=== PATIENT | male | born 1950 | race Two or more races ===

== ENCOUNTER 2020-04-09 17:56 | Outpatient (REF) | payer MEDICARE, MEDICAID, SELFPAY | END 2020-04-09 17:57 | disposition home or self-care (01) | LOC: HO.LAB 17:56 | PROVIDERS: Visit Provider Internal Medicine | DX: Z20.828 Contact with and (suspected) exposure to other viral communicable diseases (principal) | CPT/HCPCS: C9803; U0003 ==

== ENCOUNTER 2021-04-24 11:35 | Outpatient (REF) | payer MEDICARE, MEDICAID, SELFPAY ==
[2021-04-24 13:39] LABS: Influenza A PCR NEGATIVE (Negative); Influenza B PCR NEGATIVE (Negative); Resp Syncy Virus RNA Qual PCR NEGATIVE (Negative); SARS COV2 PCR INHOUSE NEGATIVE (Negative)
[2021-04-24 14:13] LABS: Adenovirus PCR Not Detected (Not Detect.); Bordetella parapertussis PCR Not Detected (Not Detect.); Bordetella pertussis PCR Not Detected (Not Detect.); Chlamydia pneumoniae PCR Not Detected (Not Detect.); Coronavirus 229E PCR Not Detected (Not Detect.); Coronavirus HKU1 PCR Not Detected (Not Detect.); Coronavirus NL63 PCR Not Detected (Not Detect.); Coronavirus OC43 PCR Not Detected (Not Detect.); Influenza A PCR Not Detected (Not Detect.); Influenza B PCR Not Detected (Not Detect.); Mycoplasma pneumoniae PCR Not Detected (Not Detect.); Parainfluenza 1 PCR Not Detected (Not Detect.); Parainfluenza 2 PCR Not Detected (Not Detect.); Parainfluenza 3 PCR Not Detected (Not Detect.); Parainfluenza 4 PCR Not Detected (Not Detect.); RSV PCR Not Detected (Not Detect.); Rhino/Enterovirus PCR Not Detected (Not Detect.); SARS-CoV-2 PCR Not Detected (Not Detect.)
[2021-04-24 15:05] LABS: Human metapneumovirus PCR Detected (Not Detect.)
== END 2021-04-24 11:36 | disposition home or self-care (01) ==
LOC: HO.LAB 11:35
PROVIDERS: Visit Provider Physician Assistant Medical
DX: Z20.822 Contact with and (suspected) exposure to COVID-19 (principal)
CPT/HCPCS: 0241U; 36415; 87633

== ENCOUNTER 2022-01-14 15:59 | Outpatient (REF) | payer MEDICARE, MEDICAID, SELFPAY ==
[2022-01-14 16:27] LABS: COVID-19 Test Negative (Negative); IDNOW Serial# 16C4AD1C
== END 2022-01-14 16:00 | disposition home or self-care (01) ==
LOC: HO.LAB 15:59
PROVIDERS: Visit Provider Internal Medicine
DX: Z20.822 Contact with and (suspected) exposure to COVID-19 (principal)
CPT/HCPCS: 87635; C9803

== ENCOUNTER 2024-06-10 10:02 | Outpatient (REF) | payer MEDICARE, MEDICAID, SELFPAY ==
[2024-06-10 10:15] VITALS: BP 167/64; PULSE 69; RESP 18; TEMP 36.4; O2SAT 97; BMI 38.7
--- OUTSIDE RECORDS SUMMARY | 2024-06-10 10:42 | XMS_ITS | Encounter Summary ---
Author Organization [facility] Address [address] [place] [address] Phone Care Team Providers Care Customer Logistics Manager Name Role Phone Chuy Hutson MD Primary Care Provider [phone] Encounter Details Date Type Department Care Team ([facility] Contact Info) Description 08/09/2022 Documentation Only [facility] [address] [place] [address] Tito Scales MD [address] [place] [address] [place] [address] Social History Tobacco Use Types Packs/Day Years Used Date Smoking Tobacco: Former Cigarettes Smokeless Tobacco: Never Sex and Gender Information Value Date Recorded Sex Assigned at Not on file Legal Sex Male 3:31 PM EDT Gender Identity Not on file Sexual Orientation Not on file documented as of this encounter Plan of Treatment Upcoming Encounters Date Type Department Care Team ([facility] Contact Info) Description 06/11/2024 2:50 PM EST Office Visit [facility] [address] [place] [address] Tito Scales MD [address] [place] [address] [place] [address] documented as of this encounter Visit Diagnoses Not on filedocumented in this encounter Care Teams Customer Logistics Manager Relationship Specialty Start Date End Date Chuy Hutson MD [address] [place] [address] [place] PCP - General Internal Medicine 11/24/23 documented as of this encounter
--- OUTSIDE RECORDS SUMMARY | 2024-06-10 10:42 | XMS_ITS | Encounter Summary ---
Author Organization [facility] Address [address] [place] [address] Phone Care Team Providers Care Gastroenterologist Name Role Phone Chuy Hutson MD Primary Care Provider [phone] Encounter Details Date Type Department Care Team ([facility] Contact Info) Description 10/05/2021 Documentation Only [facility] [address] [place] [address] Tito Scales MD [address] [place] [address] [place] [address] Social History Tobacco Use Types Packs/Day Years Used Date Smoking Tobacco: Former Cigarettes Smokeless Tobacco: Never Sex and Gender Information Value Date Recorded Sex Assigned at Not on file Legal Sex Male 3:31 PM EDT Gender Identity Not on file Sexual Orientation Not on file documented as of this encounter Plan of Treatment Upcoming Encounters Date Type Department Care Team ([facility] Contact Info) Description 06/11/2024 2:50 PM EST Office Visit [facility] [address] [place] [address] Tito Scales MD [address] [place] [address] [place] [address] documented as of this encounter Visit Diagnoses Not on filedocumented in this encounter Care Teams Gastroenterologist Relationship Specialty Start Date End Date Chuy Hutson MD [address] [place] [address] [place] PCP - General Internal Medicine 11/24/23 documented as of this encounter
--- OUTSIDE RECORDS SUMMARY | 2024-06-10 10:42 | XMS_ITS | Encounter Summary ---
Author Organization [facility] Address [address] [place] [address] Phone Care Team Providers Care Inventory Representative Name Role Phone Chuy Hutson MD Primary Care Provider [phone] Encounter Details Date Type Department Care Team ([facility] Contact Info) Description 12/28/2021 Documentation Only [facility] [address] [place] [address] Tito Scales MD [address] [place] [address] [place] [address] Social History Tobacco Use Types Packs/Day Years Used Date Smoking Tobacco: Former Cigarettes Smokeless Tobacco: Never Sex and Gender Information Value Date Recorded Sex Assigned at Not on file Legal Sex Male 3:31 PM EDT Gender Identity Not on file Sexual Orientation Not on file documented as of this encounter Plan of Treatment Upcoming Encounters Date Type Department Care Team ([facility] Contact Info) Description 06/11/2024 2:50 PM EST Office Visit [facility] [address] [place] [address] Tito Scales MD [address] [place] [address] [place] [address] documented as of this encounter Visit Diagnoses Not on filedocumented in this encounter Care Teams Inventory Representative Relationship Specialty Start Date End Date Cuhy Hutson MD [address] [place] [address] [place] PCP - General Internal Medicine 11/24/23 documented as of this encounter
--- OUTSIDE RECORDS SUMMARY | 2024-06-10 10:42 | XMS_ITS | Encounter Summary ---
Author Organization [facility] Address [address] [place] [address] Phone Care Team Providers Care Machine Tank Operator Name Role Phone Chuy Hutson MD Primary Care Provider [phone] Encounter Details Date Type Department Care Team ([facility] Contact Info) Description 10/05/2021 Documentation Only [facility] [address] [place] [address] Tito Scales MD [address] [place] [address] [place] [address] Social History Tobacco Use Types Packs/Day Years Used Date Smoking Tobacco: Former Cigarettes Smokeless Tobacco: Never Sex and Gender Information Value Date Recorded Sex Assigned at Not on file Legal Sex Male 3:31 PM EDT Gender Identity Not on file Sexual Orientation Not on file documented as of this encounter Plan of Treatment Upcoming Encounters Date Type Department Care Team ([facility] Contact Info) Description 06/11/2024 2:50 PM EST Office Visit [facility] [address] [place] [address] Tito Scales MD [address] [place] [address] [place] [address] documented as of this encounter Visit Diagnoses Not on filedocumented in this encounter Care Teams Machine Tank Operator Relationship Specialty Start Date End Date Chuy Hutson MD [address] [place] [address] [place] PCP - General Internal Medicine 11/24/23 documented as of this encounter
--- OUTSIDE RECORDS SUMMARY | 2024-06-10 10:42 | XMS_ITS | Encounter Summary ---
Author Organization [facility] Address [address] [place] [address] Phone Care Team Providers Care Director Of Direct Marketing Name Role Phone Chuy Hutson MD Primary Care Provider [phone] Encounter Details Date Type Department Care Team ([facility] Contact Info) Description 12/28/2021 Documentation Only [facility] [address] [place] [address] Tito Scales MD [address] [place] [address] [place] [address] Social History Tobacco Use Types Packs/Day Years Used Date Smoking Tobacco: Former Cigarettes Smokeless Tobacco: Never Sex and Gender Information Value Date Recorded Sex Assigned at Not on file Legal Sex Male 3:31 PM EDT Gender Identity Not on file Sexual Orientation Not on file documented as of this encounter Plan of Treatment Upcoming Encounters Date Type Department Care Team ([facility] Contact Info) Description 06/11/2024 2:50 PM EST Office Visit [facility] [address] [place] [address] Tito Scales MD [address] [place] [address] [place] [address] documented as of this encounter Visit Diagnoses Not on filedocumented in this encounter Care Teams Director Of Direct Marketing Relationship Specialty Start Date End Date Chuy Hutson MD [address] [place] [address] [place] PCP - General Internal Medicine 11/24/23 documented as of this encounter
--- OUTSIDE RECORDS SUMMARY | 2024-06-10 10:42 | XMS_ITS | Encounter Summary ---
Author Organization [facility] Address [address] [place] [address] Phone Care Team Providers Care Heating And Ventilating Drafter Name Role Phone Chuy Hutson MD Primary Care Provider [phone] Encounter Details Date Type Department Care Team ([facility] Contact Info) Description 08/09/2022 Documentation Only [facility] [address] [place] [address] Tito Scales MD [address] [place] [address] [place] [address] Social History Tobacco Use Types Packs/Day Years Used Date Smoking Tobacco: Former Cigarettes Smokeless Tobacco: Never Sex and Gender Information Value Date Recorded Sex Assigned at Not on file Legal Sex Male 3:31 PM EDT Gender Identity Not on file Sexual Orientation Not on file documented as of this encounter Plan of Treatment Upcoming Encounters Date Type Department Care Team ([facility] Contact Info) Description 06/11/2024 2:50 PM EST Office Visit [facility] [address] [place] [address] Tito Scales MD [address] [place] [address] [place] [address] documented as of this encounter Visit Diagnoses Not on filedocumented in this encounter Care Teams Heating And Ventilating Drafter Relationship Specialty Start Date End Date Chuy Hutson MD [address] [place] [address] [place] PCP - General Internal Medicine 11/24/23 documented as of this encounter
--- OUTSIDE RECORDS SUMMARY | 2024-06-10 10:42 | XMS_ITS | Encounter Summary ---
Author Organization [facility] Address [address] [place] [address] Phone Care Team Providers Care Central Office Worker Name Role Phone Chuy Hutson MD Primary Care Provider [phone] Encounter Details Date Type Department Care Team ([facility] Contact Info) Description 10/05/2021 Documentation Only [facility] [address] [place] [address] Tito Scales MD [address] [place] [address] [place] [address] Social History Tobacco Use Types Packs/Day Years Used Date Smoking Tobacco: Former Cigarettes Smokeless Tobacco: Never Sex and Gender Information Value Date Recorded Sex Assigned at Not on file Legal Sex Male 3:31 PM EDT Gender Identity Not on file Sexual Orientation Not on file documented as of this encounter Plan of Treatment Upcoming Encounters Date Type Department Care Team ([facility] Contact Info) Description 06/11/2024 2:50 PM EST Office Visit [facility] [address] [place] [address] Tito Scales MD [address] [place] [address] [place] [address] documented as of this encounter Visit Diagnoses Not on filedocumented in this encounter Care Teams Central Office Worker Relationship Specialty Start Date End Date Chuy Hutson MD [address] [place] [address] [place] PCP - General Internal Medicine 11/24/23 documented as of this encounter
--- OUTSIDE RECORDS SUMMARY | 2024-06-10 10:42 | XMS_ITS | Encounter Summary ---
Author Organization [facility] Address [address] [place] [address] Phone Care Team Providers Care Second Miller Name Role Phone Chuy Hutson MD Primary Care Provider [phone] Encounter Details Date Type Department Care Team ([facility] Contact Info) Description 05/30/2022 Documentation Only [facility] [address] [place] [address] Tito Scales MD [address] [place] [address] [place] [address] Social History Tobacco Use Types Packs/Day Years Used Date Smoking Tobacco: Former Cigarettes Smokeless Tobacco: Never Sex and Gender Information Value Date Recorded Sex Assigned at Not on file Legal Sex Male 3:31 PM EDT Gender Identity Not on file Sexual Orientation Not on file documented as of this encounter Plan of Treatment Upcoming Encounters Date Type Department Care Team ([facility] Contact Info) Description 06/11/2024 2:50 PM EST Office Visit [facility] [address] [place] [address] Tito Scales MD [address] [place] [address] [place] [address] documented as of this encounter Visit Diagnoses Not on filedocumented in this encounter Care Teams Second Miller Relationship Specialty Start Date End Date Chuy Hutson MD [address] [place] [address] [place] PCP - General Internal Medicine 11/24/23 documented as of this encounter
--- OUTSIDE RECORDS SUMMARY | 2024-06-10 10:42 | XMS_ITS | Encounter Summary ---
Author Organization [facility] Address [address] [place] [address] Phone Care Team Providers Care Silverware Washer Name Role Phone Chuy Hutson MD Primary Care Provider [phone] Encounter Details Date Type Department Care Team ([facility] Contact Info) Description 12/14/2023 Documentation Only [facility] [address] [place] [address] Tito Scales MD [address] [place] [address] [place] [address] Social History Tobacco Use Types Packs/Day Years Used Date Smoking Tobacco: Former Cigarettes Smokeless Tobacco: Never Sex and Gender Information Value Date Recorded Sex Assigned at Not on file Legal Sex Male 3:31 PM EDT Gender Identity Not on file Sexual Orientation Not on file documented as of this encounter Plan of Treatment Upcoming Encounters Date Type Department Care Team ([facility] Contact Info) Description 06/11/2024 2:50 PM EST Office Visit [facility] [address] [place] [address] Tito Scales MD [address] [place] [address] [place] [address] documented as of this encounter Visit Diagnoses Not on filedocumented in this encounter Care Teams Silverware Washer Relationship Specialty Start Date End Date Chuy Hutson MD [address] [place] [address] [place] PCP - General Internal Medicine 11/24/23 documented as of this encounter
--- OUTSIDE RECORDS SUMMARY | 2024-06-10 10:42 | XMS_ITS | Encounter Summary ---
Author Organization [facility] Address [address] [place] [address] Phone Care Team Providers Care Valet Attendant Name Role Phone Chuy Hutson MD Primary Care Provider [phone] Encounter Details Date Type Department Care Team ([facility] Contact Info) Description 10/05/2021 Documentation Only [facility] [address] [place] [address] Tito Scales MD [address] [place] [address] [place] [address] Social History Tobacco Use Types Packs/Day Years Used Date Smoking Tobacco: Former Cigarettes Smokeless Tobacco: Never Sex and Gender Information Value Date Recorded Sex Assigned at Not on file Legal Sex Male 3:31 PM EDT Gender Identity Not on file Sexual Orientation Not on file documented as of this encounter Plan of Treatment Upcoming Encounters Date Type Department Care Team ([facility] Contact Info) Description 06/11/2024 2:50 PM EST Office Visit [facility] [address] [place] [address] Tito Scales MD [address] [place] [address] [place] [address] documented as of this encounter Visit Diagnoses Not on filedocumented in this encounter Care Teams Valet Attendant Relationship Specialty Start Date End Date Chuy Hutson MD [address] [place] [address] [place] PCP - General Internal Medicine 11/24/23 documented as of this encounter
--- OUTSIDE RECORDS SUMMARY | 2024-06-10 10:42 | XMS_ITS | Encounter Summary ---
Author Organization [facility] Address [address] [place] [address] Phone Care Team Providers Care Survey Coordinator Name Role Phone Chuy Hutson MD Primary Care Provider [phone] Encounter Details Date Type Department Care Team ([facility] Contact Info) Description 12/28/2021 Documentation Only [facility] [address] [place] [address] Tito Scales MD [address] [place] [address] [place] [address] Social History Tobacco Use Types Packs/Day Years Used Date Smoking Tobacco: Former Cigarettes Smokeless Tobacco: Never Sex and Gender Information Value Date Recorded Sex Assigned at Not on file Legal Sex Male 3:31 PM EDT Gender Identity Not on file Sexual Orientation Not on file documented as of this encounter Plan of Treatment Upcoming Encounters Date Type Department Care Team ([facility] Contact Info) Description 06/11/2024 2:50 PM EST Office Visit [facility] [address] [place] [address] Tito Scales MD [address] [place] [address] [place] [address] documented as of this encounter Visit Diagnoses Not on filedocumented in this encounter Care Teams Survey Coordinator Relationship Specialty Start Date End Date Chuy Hutson MD [address] [place] [address] [place] PCP - General Internal Medicine 11/24/23 documented as of this encounter
--- OUTSIDE RECORDS SUMMARY | 2024-06-10 10:42 | XMS_ITS | Encounter Summary ---
Author Organization [facility] Address [address] [place] [address] Phone Care Team Providers Care Product Management Manager Name Role Phone Chuy Hutson MD Primary Care Provider Encounter Details Date Type Department Care Team ([facility] Contact Info) Description 05/30/2022 Documentation Only [facility] [address] [place] [address] Tito Scales MD [address] [place] [address] [place] [address] Social History Tobacco Use Types Packs/Day Years Used Date Smoking Tobacco: Former Cigarettes Smokeless Tobacco: Never Sex and Gender Information Value Date Recorded Sex Assigned at Not on file Legal Sex Male 3:31 PM EDT Gender Identity Not on file Sexual Orientation Not on file documented as of this encounter Plan of Treatment Upcoming Encounters Date Type Department Care Team ([facility] Contact Info) Description 06/11/2024 2:50 PM EST Office Visit [facility] [address] [place] [address] Tito Scales MD [address] [place] [address] [place] [address] documented as of this encounter Visit Diagnoses Not on filedocumented in this encounter Care Teams Product Management Manager Relationship Specialty Start Date End Date Chuy Hutson MD [address] [place] [address] [place] PCP - General Internal Medicine 11/24/23 documented as of this encounter
--- OUTSIDE RECORDS SUMMARY | 2024-06-10 10:42 | XMS_ITS | Clinical Summary ---
Author Organization [facility], Address [address] [place] [address] [place] [address] Phone Care Team Providers Care Medical Administrator Name Role Phone Chuy Hutson MD Primary Care Provider [phone] Allergies Active Allergy Reactions Criticality Noted Date Comments Morphine Itching 09/12/2021 Penicillin G Hives 09/12/2021 Medications amLODIPine (NORVASC) 5 MG tablet Take 5 mg by mouth 1 (one) time each day 2 Active Trulicity 1.5 MG/0.5ML solution pen-injector 2 Active Heartburn Relief 10 MG tablet TAKE 1 TABLET BY MOUTH 2 TIMES A DAY,X30 DAYS 2 Active clopidogrel (PLAVIX) 75 MG tablet Take 75 mg by mouth 1 (one) time each day 2 Active carvedilol (COREG) 25 MG tablet 2 Active NovoLOG FLEXPEN 100 UNIT/ML injection 2 Active isosorbide mononitrate (IMDUR) 60 MG 24 hr tablet 2 Active mirtazapine (REMERON) 30 MG tablet Take 30 mg by mouth at bed time 2 Active rosuvastatin (CRESTOR) 20 MG tablet 2 Active sulfamethoxazol e-trimethoprim (BACTRIM,SEPTRA ) 400-80 MG per tablet Take 1 tablet by mouth in the morning and 1 tablet in the evening. 14 tablet 2 Active valsartan (DIOVAN) 320 MG tablet 2 Active tamsulosin (FLOMAX) 0.4 MG 24 hr capsule 2 Active Incruse Ellipta 62.5 MCG/INH aerosol powder 2 Active OxyCONTIN 15 MG 12 hr abuse-deterrent tablet 2 Active ondansetron (ZOFRAN) 4 MG tablet TAKE 1 TABLET BY MOUTH THREE TIMES DAILY NEEDED X14 DAYS 2 Active nitroglycerin (NITROSTAT) 0.[address] 0.4 mg under the tongue 0 Active latanoprost (XALATAN) 0.005 % ophthalmic solution Administer 1 drop into affected eye(s) 1 Active ipratropium-alb uterol (DUO-NEB) 0.5-2.5 mg/3 mL nebulizer solution Inhale 1 Active hydrALAZINE 25 MG tablet Take 50 mg by mouth in the morning and 50 mg at noon and 50 mg in the evening. 2 Active gabapentin (NEURONTIN) 600 MG tablet 2 Active fluticasone (FLONASE) 50 MCG/ACT nasal spray 2 Active FLUoxetine (PROzac) 40 MG capsule 2 Active cetirizine (ZyrTEC) 10 MG tablet Take 1 tablet by mouth 2 Active aspirin (ST TYESHA) 81 MG EC tablet Take 1 tablet by mouth 2 Active amLODIPine (NORVASC) 10 MG tablet Take 10 mg by mouth 1 (one) time each day 2 Active albuterol HFA (PROVENTIL HFA;VENTOLIN HFA) 108 (90 Base) MCG/ACT inhaler INHALE 2 PUFFS EVERY 4 HOURS NEEDED FOR WHEEZING 2 Active acetaminophen (TYLENOL) 325 MG tablet Take 650 mg by mouth 2 Active Comfort EZ Pen [place] 33G X 5 MM misc 2 Active Breo Ellipta 100-25 MCG/INH aerosol powder Inhale 1 puff 1 (one) time each day 2 Active furosemide (LASIX) 80 MG tablet Take 2 tablets (160 mg total) by mouth in the morning and 2 tablets (160 mg total) in the evening. 120 tablet 11 2 Active senna (SENOKOT) 8.6 MG tablet TAKE 1 BY MOUTH EVERY DAY AT BEDTIME - PARA IR AL LESLI TODOS LOS LEBLANC; EVITAR ESTRENIMIENTO 2 Active Magnesium 200 MG tablet 3 Active hydrocortisone (CORTEF) 5 MG tablet 3 Active Artificial Tears 0.2-0.2-1 % solution 3 Active Semaglutide,0.2 5 or 0.5MG/DOS, (Ozempic, 0.25 or 0.5 MG/DOSE,) 2 MG/3ML solution pen-injector Inject 0.25 mg under the skin per week 3 mL 3 4 Active potassium chloride (K-TAB) 20 MEQ CR tablet TAKE 1 TABLET (20 MEQ TOTAL) BY MOUTH 1 (ONE) TIME EACH DAY DO NOT CRUSH OR CHEW 30 tablet 4 Active Active Problems Problem Noted Date Diagnosed Date Stage 3b chronic kidney disease 09/13/2021 Hypertensive disorder 09/12/2021 Hyperlipidemia 09/12/2021 Tubular adenoma 09/12/2021 Sleep apnea 09/12/2021 Morbid obesity 09/12/2021 Peripheral venous insufficiency 09/12/2021 Gastro-esophageal reflux disease without esophag itis 09/12/2021 Diabetes mellitus 09/12/2021 Coronary arteriosclerosis 09/12/2021 Chronic abdominal pain 09/12/2021 Benign prostatic hyperplasia 09/12/2021 Encounters Date Type Department Care Team Description 05/06/2024 Office Communication [facility] [address] [place] [address] Tito Scales MD 03/18/2024 Refill [facility] [address] [place] [address] Tito Scales MD 03/18/2024 Refill [facility] [address] [place] [address] Melva Umana MA from Last 3 Months Immunizations Name Administration Dates Next Due Influenza Whole 03/16/2011,01/07/2009,04/23/2007 Pfizer SARS-COV-2 02/12/2021,08/13/2020,07/24/19 21,07/13/2020 Pneumococcal Conjugate 13-Valent 02/05/2015 Pneumococcal Polysaccharide 08/27/2015, 1,01/07/2009 Td, Unspecified 07/11/2008 Tdap 02/04/2016 Zoster 07/24/2014 Family History Medical History Relation Comments COPD Father Stroke Mother Relation Status Comments Father Mother Social History Tobacco Use Types Packs/Day Years Used Date Smoking Tobacco: Former Cigarettes Smokeless Tobacco: Never Sex and Gender Information Value Date Recorded Sex Assigned at Not on file Legal Sex Male 3:31 PM EDT Gender Identity Not on file Sexual Orientation Not on file Last Filed Vital Signs Vital Sign Reading Time Taken Comments Blood Pressure 128/65 01/13/2022 10:34 AM EDT Pulse - - Temperature - - Respiratory Rate - - Oxygen Saturation - - Inhaled Oxygen Concentration - - Weight 132 kg (292 lb) 01/06/2022 10:58 AM EDT Height - - Body Mass Index - - Plan of Treatment Upcoming Encounters Date Type Department Care Team (Late st Contact Info) Description 06/11/2024 2:50 PM EST Office Visit [facility] [place], [address] [place] [address] Tito Scales MD [address] [facility] [place] [phone] Health Maintenance Due Date Last Done Comments Colorectal Cancer Screening: Annual FOBT 1997 Colorectal Cancer Screening: Colonoscopy 1997 Colorectal Cancer Screening: Sigmoidoscopy 1997 Diabetes: Hemoglobin A1C 09/09/2021 Diabetes: Ophthalmology Exam 09/09/2021 Diabetes: Pedal Pulse Checked 09/09/2021 Diabetes: Sensory Foot Exam 09/09/2021 Diabetes: Visual Foot Exam 09/09/2021 Influenza Vaccine (#1) 2024 1, 01/07/2009, 04/23/2007 Pneumococcal Vaccine: 65+ Years Completed 08/27/2015, 02/05/2015, 08/08/2010, Additional history exists Hepatitis B Vaccine Aged Out No longe r eligible based on patient's age to complete this topic Insurance MEDICARE MEDICAID [place] Care Teams Medical Administrator Relationship Specialty Start Date End Date Chuy Hutson MD [address] [facility] [place] PCP - General Internal Medicine 11/24/23
--- OUTSIDE RECORDS SUMMARY | 2024-06-10 10:42 | XMS_ITS | Encounter Summary ---
Author Organization [facility] Address [address] [place] [address] Phone Care Team Providers Care Dealer Support Technician Name Role Phone Chuy Hutson MD Primary Care Provider [phone] Encounter Details Date Type Department Care Team ([facility] Contact Info) Description 05/30/2022 Documentation Only [facility] [address] [place] [address] Tito Scales MD [address] [place] [address] [place] [address] Social History Tobacco Use Types Packs/Day Years Used Date Smoking Tobacco: Former Cigarettes Smokeless Tobacco: Never Sex and Gender Information Value Date Recorded Sex Assigned at Not on file Legal Sex Male 3:31 PM EDT Gender Identity Not on file Sexual Orientation Not on file documented as of this encounter Plan of Treatment Upcoming Encounters Date Type Department Care Team ([facility] Contact Info) Description 06/11/2024 2:50 PM EST Office Visit [facility] [address] [place] [address] Tito Scales MD [address] [place] [address] [place] [address] documented as of this encounter Visit Diagnoses Not on filedocumented in this encounter Care Teams Dealer Support Technician Relationship Specialty Start Date End Date Chuy Hutson MD [address] [place] [address] [place] PCP - General Internal Medicine 11/24/23 documented as of this encounter
--- OUTSIDE RECORDS SUMMARY | 2024-06-10 10:42 | XMS_ITS | Encounter Summary ---
Author Organization [facility] Address [address] [place] [address] Phone Care Team Providers Care Technology Lab Teacher Name Role Phone Chuy Hutson MD Primary Care Provider [phone] Encounter Details Date Type Department Care Team ([facility] Contact Info) Description 12/28/2021 Documentation Only [facility] [address] [place] [address] Tito Scales MD [address] [place] [address] [place] [address] Social History Tobacco Use Types Packs/Day Years Used Date Smoking Tobacco: Former Cigarettes Smokeless Tobacco: Never Sex and Gender Information Value Date Recorded Sex Assigned at Not on file Legal Sex Male 3:31 PM EDT Gender Identity Not on file Sexual Orientation Not on file documented as of this encounter Plan of Treatment Upcoming Encounters Date Type Department Care Team ([facility] Contact Info) Description 06/11/2024 2:50 PM EST Office Visit [facility] [address] [place] [address] Tito Scales MD [address] [place] [address] [place] [address] documented as of this encounter Visit Diagnoses Not on filedocumented in this encounter Care Teams Technology Lab Teacher Relationship Specialty Start Date End Date Chuy Hutson MD [address] [place] [address] [place] PCP - General Internal Medicine 11/24/23 documented as of this encounter
== END 2024-06-10 10:03 | disposition home or self-care (01) ==
LOC: HO.MS 10:02
PROVIDERS: PCP Student in an Organized Health Care Education/Training Program; Visit Provider Ophthalmology
PROC: (CPT 66821; principal; 2024-06-10 11:10)
DX: H26.492 Other secondary cataract, left eye (principal)
CPT/HCPCS: 66821